=== PATIENT | male | born 1970 | race Two or more races ===

== ENCOUNTER → 2020-06-03 | Outpatient (REF) | payer OTHER | LOC: M LAB REF 15:30 | PROVIDERS: ATTEND Physician Assistant | DX: Z11.59 Encounter for screening for other viral diseases (principal); U07.1 COVID-19 ==

== ENCOUNTER → 2021-03-23 | Outpatient (REF) | payer OTHER ==
[2021-03-24 16:09] LABS: Lyme Disease IgG/IgM Antibodie <0.91 ISR (0.00-0.90); Lyme Disease IgM Ab Quantitati <0.80 index (0.00-0.79)
== END ==
LOC: M LAB REF 11:21
PROVIDERS: ATTEND Physician Assistant
DX: R50.9 Fever, unspecified (principal)